=== PATIENT | male | born 1955 | race Caucasian/White ===

== ENCOUNTER 2024-08-12 18:07 | Emergency (ER) | payer OTHER ==
[~2024-08-12] VITALS: Ht 160 cm; Wt 59.0 kg
[2024-08-12] MEDS ORDERED: LISSAMINE GREEN 1.5 MG STRIP OP ONE (19:20)
[2024-08-12] MEDS ORDERED: Tetracaine Hydrochloride 0.5% 4 ML BOT OPH ONE (19:20)
[2024-08-12] MEDS ORDERED: TOBRAMYCIN 2.5 ML BOT OPH ONE (20:15)
== END 2024-08-12 20:14 | disposition home or self-care (01) ==
LOC: ED 18:07
DX: S05.02XA Injury of conjunctiva and corneal abrasion without foreign body, left eye, initial encounter (principal); X58.XXXA Exposure to other specified factors, initial encounter; Y93.89 Activity, other specified; Y92.89 Other specified places as the place of occurrence of the external cause; Y99.8 Other external cause status